=== PATIENT | female | born 1965 | race Caucasian/White ===

== ENCOUNTER 2018-07-04 16:32 | Emergency (ER) | payer OTHER, SELFPAY ==
[2018-07-04 16:33] VITALS: BP 131/79; PULSE 84; RESP 16; TEMP 37.1; O2SAT 98
--- NOTE | 2018-07-04 17:02 | ED.UPPEXIN ---
HPI - Extremity Injury (Upper) General Chief Complaint: Neuro Symptoms/Deficit Stated Complaint: left arm spasms and tingling,thinks stroke Time Seen by Provider: 07/04/18 16:42 Source: patient Mode of arrival: ambulatory Limitations: no limitations History of Present Illness HPI narrative: The patient is a 52-year-old female who presents with sharp shooting pain in her left upper arm. She does have a history of a stroke as deficit in that arm. She also broke the arm 4 years ago. Today however she is having sharp shooting pain. No other weakness. She had no facial drooping no speech difficulty no visual changes. She does have some left foot tingling as well however she has some deficits in that left leg from previous stroke but not typically. She was evaluated by EMS on [facility] who recommended that because of her history she should go to the ED for further evaluation. She is also noncompliant with her aspirin she says she does take her losartan daily but does not take aspirin daily. MD complaint: injury to: left Related Data Allergies Allergy/AdvReac Type Severity Reaction Status Date / Time No Known Drug Allergies Allergy Verified 07/04/18 16:44 Review of Systems Review of Systems All systems reviewed & are unremarkable except as noted in HPI and below Constitutional Denies chills, Denies fever(s), Denies lethargy and Denies weakness ENT Ears, Nose, Mouth, and Throat: Denies change in voice, Reports neck pain (knot in neck) and Denies sore throat Cardiovascular Denies dyspnea and Denies dyspnea on exertion Respiratory Denies cough, Denies dyspnea, Denies dyspnea on exertion and Denies wheezing Gastrointestinal Gastrointestinal: Denies abdominal pain, Denies change in bowel habits, Denies diarrhea, Denies nausea and Denies vomiting Musculoskeletal Reports as per HPI and Reports neck pain (knot in neck) Neurologic Reports as per HPI and Denies weakness Allergic/Immunologic Denies wheezing PFSH Medical History CVA (cerebral vascular accident) (Chronic) Social History Smoking Status: Never smoker Exam Initial Vital Signs Initial Vital Signs: Vital Signs Temperature 98.7 F 07/04/18 16:33 Pulse Rate 84 07/04/18 16:33 Respiratory Rate 16 07/04/18 16:33 Blood Pressure 131/79 07/04/18 16:33 Pulse Oximetry 98 07/04/18 16:33 GENERAL: Well-appearing, well-nourished and in no acute distress. HEENT: Head atraumatic,EOMI, pupils reactive, CARDIOVASCULAR: Regular rate and rhythm without murmurs, rubs or gallops. RESPIRATORY: Breath sounds equal bilaterally, no wheezes rales or rhonchi. ABDOMEN: Soft, nontender. Normoactive bowel sounds all 4 quadrants. No guarding or rebound. EXTREMITIES: Normal range of motion, no clubbing or edema. Neurovascularly intact.brace noted on left leg. NEUROLOGICAL: Alert and oriented x4.Normal gait and speech. Cranial nerves II through XII grossly intact. Left arm and hand contraction at baseline. Good [id number] good heel to [place] SKIN: Warm, dry, no laceration, no petechiae, no rashes or lesions. Course Vital Signs - 8 hr 07/04/18 16:33 Temperature 98.7 F Pulse Rate 84 Respiratory Rate 16 Blood Pressure 131/79 Pulse Oximetry 98 MDM - Extremity Injury (Upper) Lab Data Point of Care Testing Glucose POC 86 MDM Narrative Medical decision making narrative: I discussed all findings with the patient and spouse, Education has been performed regarding treatment plan, diagnosis, warning signs and symptoms and all concerns have been addressed. Verbally agree with and understood all of the above. Recommended CT and blood work. Based on patient's history. However signs and symptoms do seem to be peripheral neuropathy, and muscle spasm. No actual of weakness or focal deficits. They request to leave. Discharge Plan Departure Patient Disposition: Home Clinical Impression: Peripheral neuropathy Discharge Date/Time: 07/04/18 17:17 Interventions: ED Discharge Assessment Last Done: 07/04/18 17:16 Instructions: DI for Peripheral Neuropathy Activity Restrictions/Additional Instructions: *You have been diagnosed with peripheral neuropathy *What to do: Recommend taking aspirin daily as prescribed to help prevent secondary stroke If you should have new or worsening symptoms it would be recommended to return to the ED for woke workup of CT and blood work *Continue to take medications as directed *Follow up with your primary care provider in 2-3 days *Return to ER if you should have increasing pain, weakness, speech difficulty, leg weakness any new, worsening or concerning symptoms
== END 2018-07-04 17:17 | disposition home or self-care (01) ==
PROVIDERS: Emergency Provider Emergency Medicine
DX: G62.9 Polyneuropathy, unspecified (principal)
CPT/HCPCS: 82962; 99282; 99283; 99291